=== PATIENT | female | born 1955 | race Asian ===

== ENCOUNTER → 2018-05-30 08:07 | Outpatient (CLI) | payer OTHER, SELFPAY ==
--- NOTE | 2018-05-30 | DI.ECHO.S_ITS ---
[facility]---------+ [facility] +---------+ : : [address] : [place] [address] : : : : [id number] : : : : Phone: [phone] +---------+ Echocardiogram Report + + :Name: CONCETTA NAVARRO Study Date: 05/30/2018 Height: 60 in : :[facility] Exam Location: IS Weight: 106 lb : : Gender: Female BSA: 1.4 m2 : :: 1955 Age: 62 yrs BP: 120/60 mmHg: :Reason For Study: Aortic valve regurgitation : :Ordering Physician: Nidia : :Cheryl Performed By: Joceline Page : + + Interpretation Summary The left ventricle is normal in size. The left ventricle is hyperdynamic. The ejection fraction is estimated to be 70-75%. 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 The peak velocity of 6.1 meter/second has dagger shaped profile hence most likely due to LVOT obstruction. Visually LVOT is crowded with proximal septal thickening. On top of it, LV function is hyperdynamic and there is systolic anterior motion of the mitral valve. Morphologically aortic valve opening is not critically restricted. No significant change from the previous study. The right ventricle is normal in size and function. There is mild to moderate mitral regurgitation. Compared to the prior echo study, there has been no change in the severity of mitral regurgitation. There is moderate aortic regurgitation. Compared to the prior echo study, there has been no change in the severity of aortic regurgitation. There is mild atherosclerotic plaque in the abdominal aortal. Procedure: A two-dimensional transthoracic echocardiogram with color flow and Doppler was performed. The study quality was technically adequate. Comparison is made with the echocardiogram of 04/03/2017. The patient was in normal sinus rhythm during the exam. Left Ventricle: The left ventricle is normal in size. There is mild concentric left ventricular hypertrophy. Proximal septal thickening is noted. 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 The peak velocity of 6.1 meter/second has dagger shaped profile hence most likely due to LVOT obstruction. Visually LVOT is crowded with proximal septal thickening. On top of it, LV function is hyperdynamic and there is systolic anterior motion of the mitral valve. Morphologically aortic valve opening is not critically restricted. There is no thrombus. The ejection fraction is estimated to be 70-75%. The left ventricle is hyperdynamic. Left ventricular wall motion is normal. Diastolic parameters suggest a relaxation abnormality of the left ventricle, consistent with probable normal filling pressures. Right Ventricle: The right ventricle is normal in size and function. Atria: The left atrium is moderately dilated. The left atrium has mildly increased in size since the prior echo exam. Right atrium is small. Chiari network (normal variant) is noted. There is no Doppler evidence for an interatrial shunt. Mitral Valve: The mitral valve leaflets are mildly calcified. There is systolic anterior motion of the mitral valve. There is mild mitral annular calcification. Mitral leaflets are thickened with mild restriction of anterior mitral leaflet without any significant mitral stenosis. No significant mitral valve stenosis. There is mild to moderate mitral regurgitation. Compared to the prior echo study, there has been no change in the severity of mitral regurgitation. Aortic Valve: The aortic valve is not well visualized. Morphologically aortic valve doesn't have critical or severe aortic stenosis. There is moderate aortic regurgitation. Compared to the prior echo study, there has been no change in the severity of aortic regurgitation. Tricuspid Valve: The tricuspid valve is normal in structure and function. There is trace tricuspid regurgitation. The right ventricular systolic pressure is estimated to be at least 25 mmHg based on an estimated right atrial pressure of 3 mm Hg. Pulmonic Valve: The pulmonic valve is not well visualized. There is a trace or physiologic amount of pulmonic regurgitation. Great Vessels: The aortic root is normal size. The ascending aorta is normal in size. There is mild atherosclerotic plaque in the abdominal aortal. The pulmonary is not well visualized. The IVC is of normal diameter and collapses greater than 50% with a sniff. This suggests a low right atrial pressure of 3 mm Hg. Pericardium/ Pleura There is no pericardial effusion. There is no pleural effusion. MMode/2D Measurements & Calculations LVIDd: 4.1 cm LVOT diam: 1.7 cm LVIDs: 2.2 cm Ao root diam: 2.9 cm FS: 47.5 % asc Aorta Diam: 2.9 cm IVSd: 0.90 cm LVPWd: 1.1 cm LV rodrigues. diameter/BSA (cm/m^2): 2.9 LV sys. diameter/BSA (cm/m^2): 1.5 LA A2 area: 21.6 cm2 RA long axis: 4.1 cm LA A4 area: 19.5 cm2 RA area: 9.7 cm2 LA length (vol): 5.3 cm RA vol: 19.6 ml LA vol: 67.0 ml RA : 13.7 ml/m2 LA vol index: 47.0 ml/m2 IVC diam: 0.80 cm RVD1 (basal): 3.0 cm TAPSE: 2.0 cm Doppler Measurements & Calculations Ao V2 max: 610.9 cm/sec AI P1/2t: 398.5 msec Ao V2 mean: 433.9 cm/sec AI dec slope: 363.2 cm/sec2 Ao max P.3 mmHg Ao mean P.4 mmHg Ao V2 VTI: 142.0 cm MV E max jett: 114.7 cm/sec TR max jett: 234.3 cm/sec MV A max jett: 166.5 cm/sec TR max P.0 mmHg MV E/A: 0.69 PA V2 max: 90.2 cm/sec Med Peak E' Jett: 2.8 cm/sec PA V2 mean: 62.5 cm/sec E/E' med: 41.2 PA mean P.7 mmHg Lat Peak E' Jett: 2.4 cm/sec PA Accel Time: 0.18 sec E/E' lat: 48.3 E/e' average: 44.7 MV P1/2t: 92.6 msec MV V2 mean: 91.5 cm/sec MV P1/2t max jett: 113.1 cm/sec MV mean P.2 mmHg MVA(P1/2t): 2.4 cm2 MV V2 VTI: 43.1 cm Reading Physician:PM
== END ==
PROVIDERS: Visit Provider Internal Medicine Cardiovascular Disease
DX: I08.0 Rheumatic disorders of both mitral and aortic valves (principal); I70.0 Atherosclerosis of aorta
CPT/HCPCS: 93306

== ENCOUNTER → 2022-05-10 14:04 | Outpatient (CLI) | payer MEDICARE, OTHER, SELFPAY ==
--- NOTE | 2022-05-10 14:09 | DI.ECHO.S_ITS ---
[facility] +---------+ [facility] +---------+ : : [address] : [place] : : : : [id number] : : : : Phone: [phone] +---------+ Echocardiogram Report + + :Name: CONCETTA NAVARRO Study Date: 05/10/2022 Height: 60 in : :[facility] ReadingLocation: Weight: 106 lb : : Gender: Female BSA: 1.4 m2 : :: 1955 Age: 66 yrs BP: 112/55 mmHg: :Reason For Study: AORTIC STENOSIS : :Ordering Physician: JUDI, : :EFE Performed By: Maria Luisa Gamez : :Referring: EFE LAU : + + Interpretation Summary The left ventricle is normal in size. Proximal septal thickening is noted. The ejection fraction is estimated to be 70-75%. The peak velocity of 6.1 meter/second has delayed peaking profile hence most likely due to LVOT obstruction. Visually LVOT is crowded with proximal septal thickening. On top of it, LV function is hyperdynamic and there is systolic anterior motion of the mitral valve. Morphologically aortic valve opening is not critically restricted. It is moderately restricted. No significant change from the previous study. Based on morphology, moderate aortic stenosis. Diastolic parameters suggest a pseudonormalization pattern, consistent with probable elevated filling pressures. The right ventricle is normal in size and function. There is a thickening and calcification of both mitral leaflets with decreased excursion. Mean gradient about 11 mmHg. Based on morphology and gradient about moderate mitral stenosis which is getting worse. There is mild mitral regurgitation. There is mild tricuspid regurgitation. The right ventricular systolic pressure is estimated to be at least 40 mmHg based on an estimated right atrial pressure of 3 mm Hg. Compared to the prior echo exam, there has been an increase in the severity of pulmonary hypertension. Procedure: A two-dimensional transthoracic echocardiogram with color flow and Doppler was performed. The study quality was technically adequate. Comparison is made with the echocardiogram of 05/30/2018. The patient was in sinus rhythm with heart rates between 74-82 bpm during the exam. Left Ventricle: The left ventricle is normal in size. Proximal septal thickening is noted. There is no thrombus. The ejection fraction is estimated to be 70-75%. There are no focal wall motion abnormalities. Diastolic parameters suggest a pseudonormalization pattern, consistent with probable elevated filling pressures. Right Ventricle: The right ventricle is normal in size and function. Atria: The left atrium is moderately dilated. There has been no significant change since the previous study. Right atrial size is normal. Chiari network (normal variant) is noted. There is no Doppler evidence for an interatrial shunt. Mitral Valve: There is systolic anterior motion of the mitral valve. The mitral valve leaflets are mildly calcified. There is a thickening and calcification of both mitral leaflets with decreased excursion. Mean gradient about 11 mmHg. Based on morphology and gradient about moderate mitral stenosis which is getting worse. The mitral valve mean gradient is 11 mmHg. There is mild mitral regurgitation. Aortic Valve: The aortic valve is not well visualized. The aortic valve is moderately calcified. There is moderately reduced leaflet mobility. The peak aortic velocity is 6.1 m/sec. The aortic valve mean gradient is 84 mmHg. There is moderate aortic regurgitation. Tricuspid Valve: The tricuspid valve is normal. There is mild tricuspid regurgitation. The right ventricular systolic pressure is estimated to be at least 40 mmHg based on an estimated right atrial pressure of 3 mm Hg. Compared to the prior echo exam, there has been an increase in the severity of pulmonary hypertension. Pulmonic Valve: The pulmonic valve is not well seen, but is grossly normal. There is mild pulmonic regurgitation. Great Vessels: The aortic root is normal size. The dimensions of the ascending aorta are normal. The IVC is of normal diameter and collapses greater than 50% with a sniff. This suggests a low right atrial pressure of 3 mm Hg. Pericardium/ Pleura There is no pericardial effusion. There is no pleural effusion. MMode/2D Measurements & Calculations LVIDd: 4.3 cm LVOT diam: 1.9 cm LVIDs: 2.5 cm Ao root diam: 2.7 cm FS: 42.9 % asc Aorta Diam: 3.3 cm IVSd: 0.88 cm Ao Arch Diam (Prox Trans): 2.3 cm LVPWd: 1.2 cm LV rodrigues. diameter/BSA (cm/m^2): 3.1 LV sys. diameter/BSA (cm/m^2): 1.7 LA A2 area: 21.0 cm2 RA long axis: 5.0 cm LA A4 area: 18.7 cm2 RA area: 15.2 cm2 LA length (vol): 5.2 cm RA vol: 39.0 ml LA vol: 63.7 ml RA : 27.4 ml/m2 LA vol index: 44.7 ml/m2 IVC diam: 1.5 cm RVD1 (basal): 3.2 cm RVD2 (mid): 2.6 cm TAPSE: 1.9 cm Doppler Measurements & Calculations Ao V2 max: 613.4 cm/sec AI P1/2t: 351.2 msec Ao V2 mean: 425.5 cm/sec AI dec slope: 386.1 cm/sec2 Ao max P.5 mmHg Ao mean P.9 mmHg Ao V2 VTI: 152.5 cm MV E max jett: 188.4 cm/sec TR max jett: 304.1 cm/sec MV A max jett: 163.6 cm/sec TR max P.0 mmHg MV E/A: 1.2 PA V2 max: 109.8 cm/sec Med Peak E' Jett: 5.3 cm/sec PA V2 mean: 77.9 cm/sec E/E' med: 35.4 PA mean P.8 mmHg Lat Peak E' Jett: 3.8 cm/sec PA pr(Accel): 35.3 mmHg E/E' lat: 49.7 E/e' average: 42.6 MV dec time: 0.27 sec MV V2 mean: 146.8 cm/sec MV mean P.2 mmHg MV V2 VTI: 56.6 cm Reading Physician:04:37 PM
== END ==
PROVIDERS: PCP Physician Assistant; Referring Provider Internal Medicine Cardiovascular Disease; Visit Provider Internal Medicine Cardiovascular Disease
DX: I08.3 Combined rheumatic disorders of mitral, aortic and tricuspid valves (principal); Z87.74 Personal history of (corrected) congenital malformations of heart and circulatory system
CPT/HCPCS: 93306